=== PATIENT | female | born 1955 | race Caucasian/White ===

== ENCOUNTER 2016-11-01 14:13 | Outpatient (CLI) | payer OTHER ==
[~2016-11-01 14:13] MED LIST: LRT10T; SRTR100T
== END 2016-11-01 14:32 | disposition home or self-care (01) ==
LOC: SLEEP 14:13
PROVIDERS: ATTEND Registered Nurse
DX: G47.10 Hypersomnia, unspecified (principal); G47.61 Periodic limb movement disorder; R06.83 Snoring

== ENCOUNTER → 2020-04-11 | Outpatient (CLI) | payer OTHER ==
--- NOTE | 2020-04-11 11:07 | Diagnostic Imaging Report ---
INDICATION: Bilateral kidney stones. TIME OF EXAM: 11:01 AM. FINDINGS: There is contrast within both renal collecting systems and ureters as well as the urinary bladder from recent contrast administration. This does limit evaluation for kidney stones. The bowel gas pattern is nonobstructed. No free air is seen. There are surgical clips in the gallbladder fossa. IMPRESSION: Contrast is identified throughout the urinary tracts, as described. This does limit evaluation for kidney stones. No hydronephrosis is seen. The bowel gas pattern is unremarkable. Dictated by: Dictated on workstation # [id number]
== END ==
LOC: RAD 10:41
PROVIDERS: ATTEND Urology
DX: N20.0 Calculus of kidney (principal)
CPT/HCPCS: 74018

== ENCOUNTER 2020-05-26 12:38 | Outpatient (RCR) | payer OTHER | END 2020-06-10 09:14 | disposition home or self-care (01) | LOC: ONC 12:38 | PROVIDERS: ATTEND Internal Medicine Hematology & Oncology | DX: D72.819 Decreased white blood cell count, unspecified (principal); Z90.710 Acquired absence of both cervix and uterus; Z98.890 Other specified postprocedural states | CPT/HCPCS: 86038; 86225; G0463; 99214 ==